=== PATIENT | male | born 1985 | race American Indian/Alaskan Native ===

== ENCOUNTER 2021-11-15 09:48 | Emergency (ER) | payer SELFPAY ==
--- NOTE | 2021-11-15 10:24 | Emergency Department Report ---
ED Male HPI - General Chief complaint: Urogenital-Male Stated complaint: BLOOD IN URINE Time Seen by Provider: 11/15/21 10:20 Source: patient Mode of arrival: Ambulatory Limitations: No Limitations - History of Present Illness Initial comments: Patient presents secondary to hematuria and dysuria. Over the last 3 to 4 days he has noticed some dysuria. Over the last 1 to 2 days, he noticed hematuria. This is gross hematuria. This was towards the end of his stream. He did not have any bleeding from other sites. He did report some dysuria and burning with urination. There was no penile discharge. He has had no known sexually transmitted infection exposure. He has had no testicular pain or sores. He has not had trauma. Again, he is not bleeding from other sites. There is no family history of bleeding diathesis. - Related Data Previous Rx's Medication Instructions Recorded Last Taken Type Phenazopyridine [Pyridium] 200 mg PO TID #9 tab 11/15/21 Unknown Rx cephALEXin [Keflex] 500 mg PO Q8HR #21 cap 11/15/21 Unknown Rx Allergies Allergy/AdvReac Type Severity Reaction Status Date / Time No Known Allergies Allergy Verified 11/15/21 09:55 ED Review of Systems ROS: Stated complaint: BLOOD IN URINE Other details as noted in HPI Comment: All other systems reviewed and negative Constitutional: denies: fever Eyes: denies: eye pain ENT: denies: epistaxis Respiratory: denies: cough Cardiovascular: denies: chest pain Endocrine: denies: unexplained weight loss Gastrointestinal: denies: hematemesis Genitourinary: as per HPI Musculoskeletal: denies: back pain Skin: denies: rash Neurological: denies: headache Hematological/Lymphatic: denies: easy bruising ED Past Medical Hx - Past Medical History Previous Medical History?: No - Surgical History Past Surgical History?: No - Family History Family history: no significant - Medications Home Medications: Home Medications Medication Instructions Recorded Confirmed Last Taken Type Phenazopyridine [Pyridium] 200 mg PO TID #9 tab 11/15/21 Unknown Rx cephALEXin [Keflex] 500 mg PO Q8HR #21 cap 11/15/21 Unknown Rx ED Physical Exam - General Limitations: No Limitations, Other (Pulse ox noted and normal) General appearance: alert, in no apparent distress - Head Head exam: Present: atraumatic, normocephalic - Eye Eye exam: Present: normal appearance, EOMI. Absent: scleral icterus - ENT ENT exam: Present: normal orophraynx, normal external ear exam - Neck Neck exam: Present: normal inspection. Absent: meningismus - Respiratory Respiratory exam: Present: normal lung sounds bilaterally. Absent: respiratory distress - Cardiovascular Cardiovascular Exam: Present: regular rate, normal rhythm - GI/Abdominal GI/Abdominal exam: Present: soft. Absent: distended, tenderness - Extremities Exam Extremities exam: Present: normal capillary refill - Back Exam Back exam: Absent: CVA tenderness (R), CVA tenderness (L) - Neurological Exam Neurological exam: Present: alert, oriented X3, normal gait. Absent: motor sensory deficit - Psychiatric Psychiatric exam: Present: normal affect, normal mood - Skin Skin exam: Present: warm, dry ED Course Vital Signs 11/15/21 09:52 Temperature 98.2 F Pulse Rate 69 Respiratory 16 Rate Blood Pressure 108/60 O2 Sat by Pulse 99 Oximetry - Reevaluation(s) Reevaluation #1: 11/15/21 10:24 ua ordered. Reevaluation #2: 11/15/21 13:01 UA was noted. Patient was discharged. ED Medical Decision Making - Medical Decision Making Patient presented with dysuria and hematuria. There was no known sexually- transmitted exposure. He did not have a penile discharge. He does have evidence of a hemorrhagic cystitis. He was treated empirically. Gonorrhea and Chlamydia testing had been ordered. These are pending. If the test are positive, the patient can be notified and antibiotics can be called in at that time. He does not have CVA tenderness that would suggest pyelonephritis. He does not have flank pain suggestive of kidney stone. Critical Care Time: No Critical care attestation.: If time is entered above; I have spent that time in minutes in the direct care of this critically ill patient, excluding procedure time. ED Disposition Clinical Impression: Hemorrhagic cystitis Disposition: HOME / SELF CARE / HOMELESS Is pt being admited?: No Condition: Stable Instructions: Hematuria, Adult, Hemorrhagic Cystitis, Urinary Tract Infection, Adult, [id number] Additional Instructions: Drink plenty water. Return for problems. Follow-up with your regular doctor and the specialist as referred. Prescriptions: cephALEXin [Keflex] 500 mg PO Q8HR #21 cap Phenazopyridine [Pyridium] 200 mg PO TID #9 tab
[2021-11-15 11:42] LABS: Bacteria,Urine 1+ /HPF (Negative); Bilirubin,Urine NEG (Negative); Blood,Urine LG (Negative); Color,Urine Yellow (Yellow); Mucus,Urine FEW /HPF
[2021-11-15 12:37] LABS: Protein,Urine <15 mg/dL mg/dL (Negative); WBC,Urine < 1.0 /HPF (0.0-6.0)
[2021-11-15] MEDS ORDERED: cephALEXin 500 MG CAP PO ONE (13:00)
[2021-11-15 13:15] VITALS: BP 128/76
== END 2021-11-15 13:15 | disposition home or self-care (01) ==
LOC: ED 09:48
DX: N30.81 Other cystitis with hematuria (principal); Z79.899 Other long term (current) drug therapy
CPT/HCPCS: 81001; 87591; 99283